=== PATIENT | male | born 1975 | race American Indian/Alaskan Native ===

== ENCOUNTER 2016-05-28 11:10 | Emergency (ER) | payer OTHER ==
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
[2016-05-28] MEDS ORDERED: ZOFRAN PO ONE (12:33)
[2016-05-28] MEDS ORDERED: MORPHINE IM ONE ×2 (12:33→12:35)
[2016-05-28] MEDS ORDERED: ZOFRAN ODT PO ONE (12:36)
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
[2016-05-28 14:02] VITALS: BP 138/59
== END 2016-05-28 14:02 | disposition home or self-care (01) ==
LOC: ED 11:10
DX: S09.90XA Unspecified injury of head, initial encounter (principal); M54.5 Low back pain; R07.81 Pleurodynia; V49.49XA Driver injured in collision with other motor vehicles in traffic accident, initial encounter; Y93.9 Activity, unspecified; Y92.9 Unspecified place or not applicable; Y99.9 Unspecified external cause status
CPT/HCPCS: 70450; 71101; 72100; 72125; 96372; 99284; J2270; Q0162

== ENCOUNTER 2017-02-22 15:00 | Emergency (ER) | payer SELFPAY ==
--- NOTE | 2017-02-22 16:48 | XRay Report ---
RIGHT FEMUR: History: Laceration. AP and lateral views of the femur demonstrate normal mineralization and contours for this patient's age. No destructive changes are noted and the adjacent soft tissues are normal. IMPRESSION: Normal right femur.
[2017-02-22] MEDS ORDERED: PERCOCET 5/325 PO ONE (17:06)
[2017-02-22] MEDS ORDERED: BOOSTRIX IM ONE (17:10)
--- NOTE | 2017-02-22 17:13 | Emergency Department Report ---
- General Chief Complaint: Laceration/Recheck/Suture Stated Complaint: LEG INJURY Time Seen by Provider: 02/22/17 17:12 Source: patient, family Mode of arrival: Ambulatory Limitations: No Limitations - History of Present Illness Initial Comments: Patient here reports that he suffered a laceration to his right thigh after accidentally cutting himself with a sharp object that was in his pocket which he said it with a knife. He reports pain to his right side 6 out of 10 and reports that he was bleeding in heavily and he put pressure on it. No over-the- counter medication taken. Patient reports that pain is sharp and throbbing. Tetanus vaccine is not up-to-date. Patient denies any medical problem but he does have a history of appendectomy. Denies any fever or chills. Denies any fall. He said that incident happened less than an hour. -: This evening Extremity Location: Right: Thigh (laceration with bleed and) Place: outdoors Patient Tetanus UTD: No Context: accidental, sharp object use Associated Symptoms: pain. denies: loss of feeling/numbness, suspect foreign body present, unable to move injured part, weakness followed by dizziness, nausea/vomiting, fever Treatments Prior to Arrival: bandage - Related Data Previous Rx's Medication Instructions Recorded Last Taken Type HYDROcodone/APAP 5-325 [[place] 1 each PO Q6HR PRN #10 tablet 05/28/16 Unknown Rx 5/325] Acetaminophen/Codeine [Tylenol 1 tab PO Q6H PRN #12 tab 02/22/17 Unknown Rx /Codeine # 3 tab] Cephalexin [Keflex] 500 mg PO Q8HR #21 cap 02/22/17 Unknown Rx Ibuprofen [Motrin] 600 mg PO Q8H PRN #15 tablet 02/22/17 Unknown Rx Allergies Allergy/AdvReac Type Severity Reaction Status Date / Time No Known Allergies Allergy Unverified 05/28/16 11:41 ED Review of Systems ROS: Stated complaint: LEG INJURY Other details as noted in HPI Comment: All other systems reviewed and negative Constitutional: no symptoms reported Respiratory: no symptoms reported Cardiovascular: denies: chest pain, palpitations, dyspnea on exertion, edema, syncope, paroxysmal nocturnal dyspnea Gastrointestinal: denies: abdominal pain, nausea, vomiting, diarrhea Musculoskeletal: arthralgia. denies: back pain, joint swelling, myalgia Skin: other (laceration to right thigh) Neurological: denies: headache, weakness, numbness, paresthesias, confusion, abnormal gait, vertigo ED Past Medical Hx - Past Medical History Previous Medical History?: No - Surgical History Past Surgical History?: Yes Hx Appendectomy: Yes - Family History Family history: no significant - Social History Smoking Status: Never Smoker Substance Use Type: Alcohol - Medications Home Medications: Home Medications Medication Instructions Recorded Confirmed Last Taken Type HYDROcodone/APAP 5-325 [[place] 1 each PO Q6HR PRN #10 tablet 05/28/16 Unknown Rx 5/325] Acetaminophen/Codeine [Tylenol 1 tab PO Q6H PRN #12 tab 02/22/17 Unknown Rx /Codeine # 3 tab] Cephalexin [Keflex] 500 mg PO Q8HR #21 cap 02/22/17 Unknown Rx Ibuprofen [Motrin] 600 mg PO Q8H PRN #15 tablet 02/22/17 Unknown Rx ED Physical Exam - General Limitations: No Limitations General appearance: alert, in no apparent distress - Head Head exam: Present: atraumatic, normocephalic, normal inspection - Eye Eye exam: Present: normal appearance, PERRL, EOMI Pupils: Present: normal accommodation - ENT ENT exam: Present: normal exam, normal orophraynx, mucous membranes moist - Neck Neck exam: Present: normal inspection, full ROM, other (E C-spine tenderness). Absent: tenderness, meningismus, lymphadenopathy - Respiratory Respiratory exam: Present: normal lung sounds bilaterally. Absent: respiratory distress, chest wall tenderness, accessory muscle use - Cardiovascular Cardiovascular Exam: Present: normal rhythm, bradycardia (asymptomatic), normal heart sounds. Absent: systolic murmur, diastolic murmur - GI/Abdominal GI/Abdominal exam: Present: soft. Absent: distended, tenderness, guarding, rebound, rigid, mass, bruit, pulsatile mass - Extremities Exam Extremities exam: Present: full ROM, tenderness (laceration distal right thigh) , normal capillary refill, other (+2 pulses to all extremities. No clubbing, cyanosis or edema. No neurovascular compromise.). Absent: normal inspection, pedal edema, joint swelling, calf tenderness - Expanded Lower Extremity Exam Right Hip exam: Present: normal inspection, full ROM. Absent: tenderness, swelling, abrasion, laceration, ecchymosis, deformity, crepidus, dislocation, erythema, external rotation, internal rotation, shortening, pelvic stability Upper Leg exam: Present: full ROM, tenderness (to laceration distal anterior right thigh), laceration (Distal, anterior). Absent: normal inspection, swelling, abrasion, ecchymosis, deformity, crepidus, dislocation, erythema Knee exam: Present: normal inspection, full ROM, full knee extension. Absent: tenderness, swelling, abrasion, laceration, ecchymosis, deformity, crepidus, dislocation, erythema, effusion, pain w/ pronation/supination, posterior draw sign, pain/laxity with valgus, pain/laxity with varus Lower Leg exam: Present: normal inspection, full ROM. Absent: tenderness, swelling, abrasion, laceration, ecchymosis, deformity, crepidus, dislocation, erythema, palpable cord, Ember's sign Foot/Toe exam: Present: normal inspection, full ROM. Absent: tenderness, swelling, abrasion, laceration, ecchymosis, deformity, crepidus, dislocation, erythema, amputation, puncture wound, foreign body, calcaneal tenderness, tenderness at base of 5th metatarsal, nail avulsion, subungual hematoma Neuro vascular tendon exam: Present: no vascular compromise. Absent: pulse deficit, abnormal cap refill, motor deficit, sensory deficit, tendon deficit, extremity cold to touch, pallor, abnormal 2-point discrimination, decreased fine /light touch, foot drop, peroneal nerve deficit, significant pain with passive ROM of distal joint Gait: Positive: observed and limited by pain - Back Exam Back exam: Present: normal inspection, full ROM, other (H and able to ambulate without any difficulties). Absent: tenderness, CVA tenderness (R), CVA tenderness (L), muscle spasm, paraspinal tenderness, vertebral tenderness, rash noted - Neurological Exam Neurological exam: Present: alert, oriented X3, normal gait, reflexes normal, other (No focal neurological deficit). Absent: motor sensory deficit - Psychiatric Psychiatric exam: Present: normal affect, normal mood - Skin Skin exam: Present: warm, dry, normal color, other (laceration) ED Course Vital Signs 02/22/17 15:13 Temperature 98.4 F Pulse Rate 54 L Respiratory 16 Rate Blood Pressure 139/84 O2 Sat by Pulse 98 Oximetry - Reevaluation(s) Reevaluation #1: 02/22/17 19:00 Patient given Percocet 5/325 2 tablets prior to procedure for pain. He was given Boostrix 0.5 mL to update tetanus and clindamycin 600 mg IM . Adverse reaction noted. - Laceration /Wound Repair Right Anterior Distal Thigh Wound Location: lower extremity (right distal anterior thigh) Wound Length (cm): 7 (5 cm in depth) Wound's Depth, Shape: into muscle, linear Wound Explored: no foreign body removed Irrigated w/ Saline (ccs): 500 (the high pressure) Betadine Prep?: Yes Anesthesia: 0.5% Sensorcaine (Marcaine) Volume Anesthetic (ccs): 10 Wound Debrided: extensive Wound Repaired With: sutures Number of Sutures: 20 (0 permhand silk) Layer Closure?: Yes Deep Layer Suture Size/Type: 5:0 (Vicryl) Number Deep Layer Sutures: 12 Sterile Dressing Applied?: Yes Progress: bulky dressing placed the side. Patient able to ambulate after procedure. He tolerated procedure well. Patient instructed to return in 7-10 days to have stitches removed. ED Medical Decision Making - Radiology Data Radiology results: report reviewed X-ray of left femur reveals no acute fracture or dislocation - Medical Decision Making EDCourse: She is status post laceration to right thigh. He reports that he had a knife in his pocket and accidentally cut his right thigh prior to coming to the emergency room. Laceration repaired under sterile procedure. Please see procedure note for detail and patient tolerated procedure well. Patient given clindamycin 600 mg IM, Percocet 5/325 2 tablets prior to procedure, boostrix 0.5 mL to update tetanus. Patient is stable and was instructed to return to emergency room in 7-10 days to have stitches removed. I instructed him to keep dressing on for 24 hours and not to do any vigorous activity for the next 4 days to keep suture lines together and allow healing. Patient able to ambulate without any difficulties. I gave him discharge instruction and laceration, suture care and wound care. Patient voiced understanding of discharge diagnoses , treatment plan. Patient discharged home with his family in stable condition with prescription for Motrin, Tylenol 3 and Keflex. Critical care attestation.: If time is entered above; I have spent that time in minutes in the direct care of this critically ill patient, excluding procedure time. ED Disposition Clinical Impression: Arthralgia of right thigh Laceration of right thigh without complication Qualifiers: Encounter type: initial encounter Qualified Code(s): S71.111A - Laceration without foreign body, right thigh, initial encounter Disposition: DC- TO HOME OR SELFCARE Is pt being admited?: No Does the pt Need Aspirin: No Condition: Stable Instructions: Suture Care (ED), Laceration (ED), Absorbable Suture Care (ED), Acute Wound Care (ED) Additional Instructions: Take antibiotic as prescribed Follow-up with your primary care physician in 4 days Keep affected area clean and dry. Followed discharge instruction on acute wound care . Please return to emergency room if you develop increasing redness, streaking, fever, difficulty moving in and the left forearm and increase in pain. Do not drive or operate heavy machinery while taking Tylenol No. 3 as this medication causes drowsiness Return to emergency room in 7-10 days to have stitches removed Prescriptions: Acetaminophen/Codeine [Tylenol /Codeine # 3 tab] 1 tab PO Q6H PRN #12 tab PRN Reason: Pain Cephalexin [Keflex] 500 mg PO Q8HR #21 cap Ibuprofen [Motrin] 600 mg PO Q8H PRN #15 tablet PRN Reason: Pain Referrals: return to, Emergency room [Other] - 7-10 days (To have stitches removed in 7-10 days) PRIMARY CARE, [Primary Care Provider] - 02/26/17 Forms: Accompanied Note, Work/School Release Form(ED)
[2017-02-22] MEDS ORDERED: CLEOCIN IM ONE (17:18)
[2017-02-22] MEDS ORDERED: MARCAINE 0.5% INFILTRATI ONE (17:18)
[2017-02-22] MEDS ORDERED: NACL 0.9% IR ONE (17:19)
[2017-02-22 19:28] VITALS: BP 123/75
== END 2017-02-22 19:49 | disposition home or self-care (01) ==
LOC: ED 15:00
DX: S71.111A Laceration without foreign body, right thigh, initial encounter (principal); Z90.49 Acquired absence of other specified parts of digestive tract; W26.0XXA Contact with knife, initial encounter; Y93.89 Activity, other specified; Y99.8 Other external cause status; Y92.89 Other specified places as the place of occurrence of the external cause
CPT/HCPCS: 90471; 90715; 96372